=== PATIENT | female | born 1975 | race Caucasian/White ===

== ENCOUNTER 2017-08-26 16:13 | Emergency (ER) | payer OTHER ==
[2017-08-26] MEDS ORDERED: ONDANSETRON 4 MG/2 ML VIAL IVP STA (17:02)
[2017-08-26] MEDS ORDERED: HYDROmorphone 0.5 MG/0.5 ML SYRINGE IVP STA (17:02)
[2017-08-26 17:23] LABS: Basophils % (A) 1 %; CH 31.2; CHCM 32.2; Eosinophils # (A) 0.2 k/uL (0-0.7); Eosinophils % (A) 3 %; HCT 41.2 % (34.0-46.0); HGB 13.1 gm/dL (11.4-16.0); Luc % (Auto) 2; Lymphocytes # (A) 1.6 k/uL (1.0-4.8); Lymphocytes % (A) 29 %; MCH 30.8 pg (25.0-35.0); MCHC 31.7 g/dL (31.0-37.0); MCV 97.3 fL (80.0-100.0); Mean Platelet Volume 8.9; Monocytes # (A) 0.4 k/uL (0-1.0); Monocytes % (A) 7 %; Neutrophils # (A) 3.4 k/uL (1.3-7.7); Neutrophils % (A) 59 %; RBC 4.24 m/uL (3.80-5.40); RDW 13.7 % (11.5-15.5); WBC 5.7 k/uL (3.8-10.6)
[2017-08-26 17:25] LABS: Appearance,Urine Clear (Clear); Bilirubin,Urine Negative (Negative); Glucose,Urine (UA) Negative (Negative); Ketones,Urine Trace (Negative); Leukocyte Esterase,Urine Negative (Negative); Mucus,Urine Few /hpf; Nitrite,Urine Negative (Negative); PH, Urine 5.5 (5.0-8.0); Particle Count 7449; Protein,Urine Trace (Negative); RBC,Urine <1 /hpf (0-5); Specific Gravity,Urine 1.025 (1.001-1.035); Squamous Epithelial Cell,Urine 4 /hpf (0-4); UA Billing (MACRO vs. MICRO) MICRO; Urobilinogen,Urine <2.0 mg/dL (<2.0); WBC,Urine 2 /hpf (0-5)
[2017-08-26 17:36] LABS: ALT 29 U/L (9-52); AST 22 U/L (14-36); Alkaline Phosphatase 47 U/L (38-126); Amylase 66 U/L (30-110); Anion Gap 10 mmol/L; Blood Urea Nitrogen 18 mg/dL (7-17); Calcium 9.6 mg/dL (8.4-10.2); Carbon Dioxide 22 mmol/L (22-30); Chloride 108 mmol/L (98-107); Glucose 71 mg/dL (74-99); Non-African American GFR(MDRD) >60 (>60 ml/min/1.73 sqM); Potassium 4.2 mmol/L (3.5-5.1); Sodium 140 mmol/L (137-145); Total Bilirubin 0.5 mg/dL (0.2-1.3); Total Protein 7.4 g/dL (6.3-8.2)
[2017-08-26] MEDS ORDERED: CEPHALEXIN 500MG STARTER PACK 4 CAP BTL PO STA (17:37)
--- NOTE | 2017-08-26 17:44 | ED ---
General Adult HPI - General Source: patient, RN notes reviewed Mode of arrival: ambulatory Limitations: no limitations <Roland Guido - Last Filed: 08/26/17 17:42> <Des Lunsford - Last Filed: 08/26/17 20:17> - General Chief complaint: Abdominal Pain Stated complaint: Right Side Pain Time Seen by Provider: 08/26/17 16:47 - History of Present Illness Initial comments: Patient's a 42-year-old female who presents emergency room today with a chief complaint of abdominal pain. She doesn't that she's had abdominal pain on and off over the last few months per she has been following up with specialist. She does admit that over the last 12 hours she's been having increased pain in the right upper quadrant. She does describe it as a "sharp" type pain. Patient does admit that starts in the right upper side radiates around to the back. She states that she's had some problems with her gallbladder in the past. She denies anything that makes this better or worse. She does admit to feeling nauseated no vomiting at this time. Patient states she has not taken anything for pain at home. Patient also admits that she's had some pain in the right lower side of the abdomen as well but is not as severe. She admits that she's not had a menstrual cycle over a month. Denies vaginal bleeding or discharge. She denies any other complaints currently. Patient denies any recent fever, chills, shortness of breath, chest pain, numbness or tingling, dysuria or hematuria, constipation or diarrhea, headaches or visual changes, or any other complaints. (Roland Guido) - Related Data Home Medications Medication Instructions Recorded Confirmed Furosemide [Lasix] 20 mg PO DAILY 08/04/17 08/26/17 Montelukast [Singulair] 10 mg PO DAILY 08/04/17 08/26/17 Norgestimate-Ethinyl Estradiol 1 tab PO DAILY 08/04/17 08/26/17 [Mononessa 28 Tablet] QUEtiapine [SEROquel] 100 mg PO DAILY 08/04/17 08/26/17 Zolpidem [Ambien] 10 mg PO HS PRN 08/04/17 08/26/17 buPROPion HCL [Wellbutrin SR] 150 mg PO BID 08/04/17 08/26/17 clonazePAM [KlonoPIN] 0.5 mg PO BID PRN 08/04/17 08/26/17 Allergies Allergy/AdvReac Type Severity Reaction Status Date / Time ciprofloxacin [From Cipro] Allergy Nausea & Verified 08/26/17 16:23 Vomiting egg Allergy Nausea & Verified 08/26/17 16:23 Vomiting Sulfa (Sulfonamide Allergy Unknown Verified 08/26/17 16:23 Antibiotics) Review of Systems ROS Other: All systems not noted in ROS Statement are negative. <Roland Guido - Last Filed: 08/26/17 17:42> ROS Other: All systems not noted in ROS Statement are negative. <Des Lunsford - Last Filed: 08/26/17 20:17> ROS Statement: Those systems with pertinent positive or pertinent negative responses have been documented in the HPI. Past Medical History Additional Past Medical History / Comment(s): inner ear fluid imbalance, IBS, insomnia History of Any Multi-Drug Resistant Organisms: None Reported Past Surgical History: No Surgical Hx Reported Past Psychological History: Anxiety Smoking Status: Never smoker Past Alcohol Use History: Occasional Past Drug Use History: None Reported <Roland Guido - Last Filed: 08/26/17 17:42> General Exam Limitations: no limitations <Roland Guido - Last Filed: 08/26/17 17:42> <Des Lunsford - Last Filed: 08/26/17 20:17> - General Exam Comments Initial Comments: General: The patient is awake and alert, in no distress, and does not appear acutely ill. Eye: Pupils are equal, round and reactive to light, extra-ocular movements are intact. No nystagmus. There is normal conjunctiva bilaterally. No signs of icterus. Ears, nose, mouth and throat: There are moist mucous membranes and no oral lesions. Neck: The neck is supple, there is no tenderness or JVD. Cardiovascular: There is a regular rate and rhythm. No murmur, rub or gallop is appreciated. Respiratory: Lungs are clear to auscultation, respirations are non-labored, breath sounds are equal. No wheezes, stridor, rales, or rhonchi. Gastrointestinal: Normal bowel sounds. Abdomen soft on palpation. Patient does have tenderness right upper quadrant. No rebound tenderness. No guarding. Right-sided CVA tenderness. Musculoskeletal: Normal ROM, no tenderness. Strength 5/5. Sensation intact. Pulses equal bilaterally 2+. Neurological: A&O x 3. CN II-XII intact, There are no obvious motor or sensory deficits. Coordination appears grossly intact. Speech is normal. Skin: Skin is warm and dry and no rashes or lesions are noted. Psychiatric: Cooperative, appropriate mood & affect, normal judgment. (Roland Guido) Vital Signs 08/26/17 08/26/17 16:16 19:04 Temperature 98.0 F 98.2 F Pulse Rate 69 61 Respiratory 16 18 Rate Blood Pressure 136/62 120/62 O2 Sat by Pulse 100 98 Oximetry Medical Decision Making - Lab Data Result diagrams: 08/26/17 16:51 08/26/17 16:51 <Roland Guido - Last Filed: 08/26/17 17:42> - Lab Data Result diagrams: 08/26/17 16:51 08/26/17 16:51 <Des Lunsford - Last Filed: 08/26/17 20:17> - Medical Decision Making the patient had an enema of molasses. She did have some positive results. Patient states she wants to go home and try an oral medication. Though the mag citrate she used last time was affective meter 6. she has been instructed to use milk of magnesia twice daily. Increase fluids and roughage. Follow-up with family physician. (Des Lunsford) - Lab Data Lab Results 08/26/17 08/26/17 08/26/17 Range/Units 16:51 16:51 16:51 WBC 5.7 (3.8-10.6) k/uL RBC 4.24 (3.80-5.40) m/uL Hgb 13.1 (11.4-16.0) gm/dL Hct 41.2 (34.0-46.0) % MCV 97.3 (80.0-100.0) fL MCH 30.8 (25.0-35.0) pg MCHC 31.7 (31.0-37.0) g/dL RDW 13.7 (11.5-15.5) % Plt Count 245 (150-450) k/uL Neutrophils % 59 % Lymphocytes % 29 % Monocytes % 7 % Eosinophils % 3 % Basophils % 1 % Neutrophils # 3.4 (1.3-7.7) k/uL Lymphocytes # 1.6 (1.0-4.8) k/uL Monocytes # 0.4 (0-1.0) k/uL Eosinophils # 0.2 (0-0.7) k/uL Basophils # 0.0 (0-0.2) k/uL Sodium 140 (137-145) mmol/L Potassium 4.2 (3.5-5.1) mmol/L Chloride 108 H (98-107) mmol/L Carbon Dioxide 22 (22-30) mmol/L Anion Gap 10 mmol/L BUN 18 H (7-17) mg/dL Creatinine 0.83 (0.52-1.04) mg/dL Est GFR (MDRD) Af Amer >60 (>60 ml/min/1.73 sqM) Est GFR (MDRD) Non-Af >60 (>60 ml/min/1.73 sqM) Glucose 71 L (74-99) mg/dL Calcium 9.6 (8.4-10.2) mg/dL Total Bilirubin 0.5 (0.2-1.3) mg/dL AST 22 (14-36) U/L ALT 29 (9-52) U/L Alkaline Phosphatase 47 (38-126) U/L Total Protein 7.4 (6.3-8.2) g/dL Albumin 4.6 (3.5-5.0) g/dL Amylase 66 (30-110) U/L Lipase 242 (23-300) U/L Urine Color Yellow Urine Appearance Clear (Clear) Urine pH 5.5 (5.0-8.0) Ur Specific [place] 1.025 (1.001-1.035) Urine Protein Trace H (Negative) Urine Glucose (UA) Negative (Negative) Urine Ketones Trace H (Negative) Urine Blood Trace H (Negative) Urine Nitrite Negative (Negative) Urine Bilirubin Negative (Negative) Urine Urobilinogen <2.0 (<2.0) mg/dL Ur Leukocyte Esterase Negative (Negative) Urine RBC <1 (0-5) /hpf Urine WBC 2 (0-5) /hpf Ur Squamous Epith Cells 4 (0-4) /hpf Urine Mucus Few H (None) /hpf Urine HCG, Qual (Not Detectd) 08/26/17 Range/Units 16:51 WBC (3.8-10.6) k/uL RBC (3.80-5.40) m/uL Hgb (11.4-16.0) gm/dL Hct (34.0-46.0) % MCV (80.0-100.0) fL MCH (25.0-35.0) pg MCHC (31.0-37.0) g/dL RDW (11.5-15.5) % Plt Count (150-450) k/uL Neutrophils % % Lymphocytes % % Monocytes % % Eosinophils % % Basophils % % Neutrophils # (1.3-7.7) k/uL Lymphocytes # (1.0-4.8) k/uL Monocytes # (0-1.0) k/uL Eosinophils # (0-0.7) k/uL Basophils # (0-0.2) k/uL Sodium (137-145) mmol/L Potassium (3.5-5.1) mmol/L Chloride (98-107) mmol/L Carbon Dioxide (22-30) mmol/L Anion Gap mmol/L BUN (7-17) mg/dL Creatinine (0.52-1.04) mg/dL Est GFR (MDRD) Af Amer (>60 ml/min/1.73 sqM) Est GFR (MDRD) Non-Af (>60 ml/min/1.73 sqM) Glucose (74-99) mg/dL Calcium (8.4-10.2) mg/dL Total Bilirubin (0.2-1.3) mg/dL AST (14-36) U/L ALT (9-52) U/L Alkaline Phosphatase (38-126) U/L Total Protein (6.3-8.2) g/dL Albumin (3.5-5.0) g/dL Amylase (30-110) U/L Lipase (23-300) U/L Urine Color Urine Appearance (Clear) Urine pH (5.0-8.0) Ur Specific [place] (1.001-1.035) Urine Protein (Negative) Urine Glucose (UA) (Negative) Urine Ketones (Negative) Urine Blood (Negative) Urine Nitrite (Negative) Urine Bilirubin (Negative) Urine Urobilinogen (<2.0) mg/dL Ur Leukocyte Esterase (Negative) Urine RBC (0-5) /hpf Urine WBC (0-5) /hpf Ur Squamous Epith Cells (0-4) /hpf Urine Mucus (None) /hpf Urine HCG, Qual Not Detected (Not Detectd) Disposition <Roland Guido - Last Filed: 08/26/17 17:42> Time of Disposition: 20:17 <Des Lunsford - Last Filed: 08/26/17 20:17> Clinical Impression: Irritable bowel syndrome Disposition: HOME SELF-CARE Condition: Stable Instructions: Irritable Bowel Syndrome (ED) Additional Instructions: Increase fluids, eat adequate roughage. Use milk of magnesia twice daily until results. Follow-up family physician return emergency room with any changes. Referrals: Willy Pardo MD [Primary Care Provider] - 1-2 days
--- NOTE | 2017-08-26 18:25 | US ---
EXAMINATION TYPE: US abdomen limited DATE OF EXAM: 08/26/2017 COMPARISON: NONE CLINICAL HISTORY: 42-year-old female RUQ pain radiating to back with more recent onset of RLQ pain as well TECHNIQUE: Multiple sonographic images of the right upper quadrant are obtained. FINDINGS: REMOTE RECRUITER NOTES: Limited due to bowel gas and patient's ability to hold her breath. Liver Length: 14.2 cm Gallbladder Wall: 0.2 cm CBD: 0.2 cm Right Kidney: 10.2 X 4.5 X 5.2 cm Pancreas: Suboptimal visualization of the pancreatic tail secondary to shadowing from bowel gas. Vis ualized portions appear within normal limits. Liver: Multiple cysts are present, largest in the right lobe measuring 3.4 cm and largest on the lef t measuring 2.2 cm. A couple have thin internal septations. Gallbladder: wnl Evidence for sonographic Minaya's sign: No CBD: wnl Right Kidney: No hydronephrosis. IMPRESSION: A few benign hepatic cysts measuring up to 3.4 cm. Otherwise, unremarkable sonographic examination of the right upper quadrant.
--- NOTE | 2017-08-26 18:47 | XR ---
EXAMINATION TYPE: XR KUB DATE OF EXAM: 08/26/2017 CLINICAL DATA: 42-year-old female with abdominal pain, H COMPARISON: 08/04/2017 FINDINGS: Lung bases are clear. No evidence for free intraperitoneal air. No dilated small bowel or air-fluid levels. Scattered air and stool seen throughout the colon extendi ng distally into the rectum. Moderate stool burden. No suspicious calcifications identified. IMPRESSION: Moderate stool burden. No evidence of bowel obstruction or free intraperitoneal air.
[2017-08-26 19:08] VITALS: RESP 18
[2017-08-26 20:47] VITALS: BP 134/87; PULSE 87; TEMP 97.4
== END 2017-08-26 20:46 | disposition home or self-care (01) ==
LOC: EC 16:13
DX: K58.9 Irritable bowel syndrome, unspecified (principal); R11.0 Nausea; M54.9 Dorsalgia, unspecified; Z79.3 Long term (current) use of hormonal contraceptives; Z79.899 Other long term (current) drug therapy; Z88.1 Allergy status to other antibiotic agents; Z88.2 Allergy status to sulfonamides; Z91.012 Allergy to eggs
CPT/HCPCS: 36415; 80053; 82150; 83690; 85025; 81001; 81025; 74000; 76705; 99284; 96374; 96375; J2405; J1170

== ENCOUNTER 2018-03-12 19:13 | Emergency (ER) | payer OTHER ==
[2018-03-12 19:20] VITALS: BP 107/67; PULSE 64; RESP 18; TEMP 97.5
--- NOTE | 2018-03-12 19:41 | ED ---
Neck Injury/Pain HPI - General Chief Complaint: Neck Pain/Injury Stated Complaint: neck & shoulder pain Time Seen by Provider: 03/12/18 19:21 Mode of arrival: ambulatory Limitations: no limitations - History of Present Illness Initial Comments: 42-year-old female patient presents to the emergency department today for complaints of neck pain that radiates down her right arm. Patient states that she does have a history of herniated disc in her neck has had symptoms like this before. Patient states that about 5 days ago she was working out in the yard, doing power washing, and started to have pain after that. Patient states that she does have some tingling in the first 3 fingers on her right hand. She denies any injury to the neck or arm. States that she was in to see her primary care physician for this today and did receive Toradol without relief of symptoms. Patient denies any chest pain or shortness of breath. Patient states that she does feel anxious. She denies any nausea or vomiting. Patient denies any headache, back pain, dizziness, weakness, abdominal pain, nausea, vomiting, or difficulties with bowel movements or urination. - Related Data Home Medications Medication Instructions Recorded Confirmed Furosemide [Lasix] 20 mg PO DAILY 08/04/17 08/26/17 Montelukast [Singulair] 10 mg PO DAILY 08/04/17 08/26/17 Norgestimate-Ethinyl Estradiol 1 tab PO DAILY 08/04/17 08/26/17 [Mononessa 28 Tablet] QUEtiapine [SEROquel] 100 mg PO DAILY 08/04/17 08/26/17 Zolpidem [Ambien] 10 mg PO HS PRN 08/04/17 08/26/17 buPROPion HCL [Wellbutrin SR] 150 mg PO BID 08/04/17 08/26/17 clonazePAM [KlonoPIN] 0.5 mg PO BID PRN 08/04/17 08/26/17 Previous Rx's Medication Instructions Recorded Acetaminophen-Codeine 300-30mg 1 tab PO Q6H PRN #12 tablet 03/12/18 [Tylenol #3] Ibuprofen [Motrin] 600 mg PO Q8HR PRN #30 tab 03/12/18 predniSONE 50 mg PO DAILY #5 tablet 03/12/18 Allergies Allergy/AdvReac Type Severity Reaction Status Date / Time ciprofloxacin [From Cipro] Allergy Nausea & Verified 03/12/18 19:20 Vomiting egg Allergy Nausea & Verified 03/12/18 19:20 Vomiting Sulfa (Sulfonamide Allergy Unknown Verified 03/12/18 19:20 Antibiotics) Review of Systems ROS Statement: Those systems with pertinent positive or pertinent negative responses have been documented in the HPI. ROS Other: All systems not noted in ROS Statement are negative. Past Medical History Additional Past Medical History / Comment(s): inner ear fluid imbalance, IBS, insomnia History of Any Multi-Drug Resistant Organisms: None Reported Past Surgical History: No Surgical Hx Reported Past Psychological History: Anxiety Smoking Status: Never smoker Past Alcohol Use History: Occasional Past Drug Use History: None Reported General Exam Limitations: no limitations General appearance: alert, in no apparent distress, other (This is a well- developed, well-nourished adult female patient in no acute distress. Vital signs upon presentation are temperature 97.5F, pulse 64, respirations 18, blood pressure 107/67, pulse ox 100% on room air.) Eye exam: Present: normal appearance, PERRL, EOMI. Absent: scleral icterus, conjunctival injection, periorbital swelling ENT exam: Present: normal exam, normal oropharynx, mucous membranes moist Neck exam: Present: normal inspection, full ROM. Absent: tenderness, meningismus, lymphadenopathy Respiratory exam: Present: normal lung sounds bilaterally. Absent: respiratory distress, wheezes, rales, rhonchi, stridor Cardiovascular Exam: Present: regular rate, normal rhythm, normal heart sounds. Absent: systolic murmur, diastolic murmur, rubs, gallop, clicks GI/Abdominal exam: Present: soft, normal bowel sounds. Absent: distended, tenderness, guarding, rebound, rigid Extremities exam: Present: normal inspection, full ROM, normal capillary refill , other (Radial pulses are 2+ and equal bilaterally. Strength in the upper extremities is 5/5. Inspection is normal. Skin is pink, warm, and dry. Cap refills less than 3 seconds.). Absent: tenderness, pedal edema, joint swelling , calf tenderness Back exam: Present: normal inspection. Absent: vertebral tenderness Neurological exam: Present: alert, oriented X3, CN II-XII intact Psychiatric exam: Present: normal affect, normal mood, anxious Skin exam: Present: warm, dry, intact, normal color. Absent: rash Course Vital Signs 03/12/18 19:17 Temperature 97.5 F L Pulse Rate 64 Respiratory 18 Rate Blood Pressure 107/67 O2 Sat by Pulse 100 Oximetry Medical Decision Making - Medical Decision Making 42-year-old female patient presented to the emergency department today for evaluation of neck pain that radiates down the right arm. Patient has history of herniated disc and has had similar symptoms in the past. Physical examination is relatively unremarkable. Patient has full range of motion of the neck. She has full range of motion of the right arm and shoulder. Strength in the bilateral upper extremities is strong and equal. EKG was obtained and showed sinus bradycardia with no evidence of ST elevation or depression. Abdomen was soft and nontender. Patient will be treated for cervical radiculopathy. Will give IM Solu-Medrol. We'll give prescription of prednisone, Tylenol 3 to take while taking the prednisone and she will switch to ibuprofen once a steroid is complete. She is instructed to follow-up with Dr. Wilson for further evaluation of her symptoms do not improve. She is instructed to return here immediately for any new, worsening, or concerning symptoms. She verbalizes understanding and agrees this plan. - EKG Data -: EKG Interpreted by Me EKG Comments: EKG obtained at 1940 60 sinus bradycardia with a ventricular rate of 59, LA interval 146, QR moravian 84, QTC 420, QTC 4:15. No evidence of ST elevation or depression. Disposition Clinical Impression: Cervical radiculopathy Disposition: HOME SELF-CARE Condition: Good Instructions: Cervical Radiculopathy (ED) Additional Instructions: Apply warm moist heat to the neck. Take steroids in full and then start anti- inflammatory pain medication. Perform gentle range of motion exercises. Follow -up with orthopedics if her symptoms persist beyond treatment. Return here immediately for any new, worsening, or concerning symptoms. Prescriptions: Acetaminophen-Codeine 300-30mg [Tylenol #3] 1 tab PO Q6H PRN #12 tablet PRN Reason: Pain Ibuprofen [Motrin] 600 mg PO Q8HR PRN #30 tab PRN Reason: Pain predniSONE 50 mg PO DAILY #5 tablet Is patient prescribed a controlled substance at d/c from ED?: Yes When asked, does pt state using other controlled substances?: Yes If prescribed controlled substance>3 days was MAPS reviewed?: Prescribed <3 Days If opioid is for acute pain is fill amount 7 days or less?: Yes If Rx opioid, was Start Talking consent form obtained?: Yes Referrals: Isaiah Peters MD [Primary Care Provider] - 1-2 days Ashley Wilson DO [Doctor of Osteopathic Medicine] - 1-2 days Time of Disposition: 19:54
[2018-03-12] MEDS ORDERED: methylPREDNISolone SOD SUCCI 125 MG/2 ML VIAL IM ONE (19:43)
[2018-03-12] MEDS ORDERED: ACET/COD 300 MG/30 MG STARTER PACK 6 TAB BTL PO STA (19:43)
== END 2018-03-12 20:49 | disposition home or self-care (01) ==
LOC: EC 19:13
DX: M54.12 Radiculopathy, cervical region (principal); R00.1 Bradycardia, unspecified; F41.9 Anxiety disorder, unspecified; Z79.3 Long term (current) use of hormonal contraceptives; Z79.899 Other long term (current) drug therapy; Z88.2 Allergy status to sulfonamides; Z88.1 Allergy status to other antibiotic agents; Z91.012 Allergy to eggs
CPT/HCPCS: 93005; 99283; 96372; J2930

== ENCOUNTER 2018-05-30 20:51 | Emergency (ER) | payer OTHER ==
[2018-05-30] MEDS ORDERED: KETOROLAC 30 MG/ML 1 ML VIAL IVP STA (21:15)
--- NOTE | 2018-05-30 21:19 | ED ---
Abdominal Pain HPI - General Chief Complaint: Abdominal Pain Stated Complaint: Abd Pain Time Seen by Provider: 05/30/18 21:03 Source: patient Mode of arrival: ambulatory Limitations: no limitations - History of Present Illness Initial Comments: This patient is a 42-year-old woman who presents to be evaluated for right lower quadrant abdominal pain. She states that she noted the pain around 10 the morning, and felt that it was like menstrual cramps but states that she never gets those. She states that he had continued to most of the day and then around 5 PM it had become worse. She rates it as moderately severe. There is no radiation. She has not noted anything that consistently makes the pain better or worse. She has not noted any accompanying symptoms but states that she has not been eating much today. MD Complaint: abdominal pain Onset/Timin -: hour(s) Location: RLQ Radiation: none Migration to: no migration Severity: moderate Quality: cramping Consistency: constant Improves With: nothing Worsens With: nothing Associated Symptoms: anorexia - Related Data Patient : No Home Medications Medication Instructions Recorded Confirmed Furosemide [Lasix] 20 mg PO DAILY 08/04/17 08/26/17 Montelukast [Singulair] 10 mg PO DAILY 08/04/17 08/26/17 Norgestimate-Ethinyl Estradiol 1 tab PO DAILY 08/04/17 08/26/17 [Mononessa 28 Tablet] QUEtiapine [SEROquel] 100 mg PO DAILY 08/04/17 08/26/17 Zolpidem [Ambien] 10 mg PO HS PRN 08/04/17 08/26/17 buPROPion HCL [Wellbutrin SR] 150 mg PO BID 08/04/17 08/26/17 clonazePAM [KlonoPIN] 0.5 mg PO BID PRN 08/04/17 08/26/17 Previous Rx's Medication Instructions Recorded Acetaminophen-Codeine 300-30mg 1 tab PO Q6H PRN #12 tablet 03/12/18 [Tylenol #3] Ibuprofen [Motrin] 600 mg PO Q8HR PRN #30 tab 03/12/18 predniSONE 50 mg PO DAILY #5 tablet 03/12/18 Ibuprofen [Motrin] 600 mg PO Q8HR PRN #20 tab 05/31/18 Allergies Allergy/AdvReac Type Severity Reaction Status Date / Time ciprofloxacin [From Cipro] Allergy Nausea & Verified 05/30/18 20:57 Vomiting egg Allergy Nausea & Verified 05/30/18 20:57 Vomiting Sulfa (Sulfonamide Allergy Unknown Verified 05/30/18 20:57 Antibiotics) Review of Systems ROS Statement: Those systems with pertinent positive or pertinent negative responses have been documented in the HPI. ROS Other: All systems not noted in ROS Statement are negative. Constitutional: Denies: fever, chills Respiratory: Denies: cough, dyspnea Cardiovascular: Denies: chest pain, palpitations, edema Gastrointestinal: Reports: abdominal pain. Denies: vomiting, diarrhea, constipation, melena, hematochezia Genitourinary: Denies: dysuria, frequency, hematuria, abnormal menses Musculoskeletal: Denies: back pain Skin: Denies: rash Neurological: Denies: headache, weakness, numbness Psychiatric: Reports: anxiety Past Medical History Additional Past Medical History / Comment(s): inner ear fluid imbalance, IBS, insomnia History of Any Multi-Drug Resistant Organisms: None Reported Past Surgical History: No Surgical Hx Reported Past Psychological History: Anxiety Smoking Status: Never smoker Past Alcohol Use History: Occasional Past Drug Use History: None Reported General Exam Limitations: no limitations General appearance: alert, in no apparent distress Head exam: Present: atraumatic, normocephalic Eye exam: Present: normal appearance. Absent: scleral icterus, conjunctival injection ENT exam: Present: normal oropharynx Respiratory exam: Present: normal lung sounds bilaterally. Absent: respiratory distress, wheezes, rales, rhonchi, stridor Cardiovascular Exam: Present: regular rate, normal rhythm, normal heart sounds. Absent: systolic murmur, diastolic murmur, rubs, gallop GI/Abdominal exam: Present: soft, normal bowel sounds. Absent: distended, tenderness, guarding, rebound, rigid, mass, pulsatile mass, hernia External exam: Present: normal external exam. Absent: erythema, swelling, lesions, lacerations, ecchymosis Speculum exam: Present: vaginal discharge. Absent: erythema, cervical discharge , vaginal bleeding, foreign body By manual exam: Present: adnexal tenderness. Absent: cervical motion tenderness , uterine enlargement, uterine tenderness Extremities exam: Present: normal inspection, normal capillary refill. Absent: pedal edema, calf tenderness Back exam: Present: normal inspection. Absent: CVA tenderness (R), CVA tenderness (L), vertebral tenderness Neurological exam: Present: alert Skin exam: Present: warm, dry, intact, normal color. Absent: rash Course Vital Signs 05/30/18 05/31/18 20:55 00:11 Temperature 98.0 F Pulse Rate 66 65 Respiratory 20 17 Rate Blood Pressure 125/81 134/82 O2 Sat by Pulse 99 99 Oximetry Medical Decision Making - Lab Data Result diagrams: 05/30/18 21:20 05/30/18 21:20 Lab Results 05/30/18 05/30/18 05/30/18 Range/Units 21:20 21:20 21:30 WBC 5.6 (3.8-10.6) k/uL RBC 3.96 (3.80-5.40) m/uL Hgb 12.2 (11.4-16.0) gm/dL Hct 37.1 (34.0-46.0) % MCV 93.8 (80.0-100.0) fL MCH 30.8 (25.0-35.0) pg MCHC 32.9 (31.0-37.0) g/dL RDW 13.7 (11.5-15.5) % Plt Count 224 (150-450) k/uL Neutrophils % 54 % Lymphocytes % 33 % Monocytes % 7 % Eosinophils % 2 % Basophils % 0 % Neutrophils # 3.0 (1.3-7.7) k/uL Lymphocytes # 1.9 (1.0-4.8) k/uL Monocytes # 0.4 (0-1.0) k/uL Eosinophils # 0.1 (0-0.7) k/uL Basophils # 0.0 (0-0.2) k/uL Sodium 139 (137-145) mmol/L Potassium 3.9 (3.5-5.1) mmol/L Chloride 107 (98-107) mmol/L Carbon Dioxide 24 (22-30) mmol/L Anion Gap 8 mmol/L BUN 14 (7-17) mg/dL Creatinine 0.70 (0.52-1.04) mg/dL Est GFR (CKD-EPI)AfAm >90 (>60 ml/min/1.73 sqM) Est GFR (CKD-EPI)NonAf >90 (>60 ml/min/1.73 sqM) Glucose 106 H (74-99) mg/dL Calcium 9.3 (8.4-10.2) mg/dL Total Bilirubin 0.4 (0.2-1.3) mg/dL AST 24 (14-36) U/L ALT 33 (9-52) U/L Alkaline Phosphatase 48 (38-126) U/L C-Reactive Protein 10.7 H (<10.0) mg/L Total Protein 6.3 (6.3-8.2) g/dL Albumin 3.7 (3.5-5.0) g/dL Amylase 54 (30-110) U/L Lipase 172 (23-300) U/L Urine Color Urine Appearance (Clear) Urine pH (5.0-8.0) Ur Specific Cody (1.001-1.035) Urine Protein (Negative) Urine Glucose (UA) (Negative) Urine Ketones (Negative) Urine Blood (Negative) Urine Nitrite (Negative) Urine Bilirubin (Negative) Urine Urobilinogen (<2.0) mg/dL Ur Leukocyte Esterase (Negative) Urine RBC (0-5) /hpf Ur Squamous Epith Cells (0-4) /hpf Amorphous Sediment (None) /hpf Urine Mucus (None) /hpf Urine HCG, Qual Not Detected (Not Detectd) 05/30/18 Range/Units 21:30 WBC (3.8-10.6) k/uL RBC (3.80-5.40) m/uL Hgb (11.4-16.0) gm/dL Hct (34.0-46.0) % MCV (80.0-100.0) fL MCH (25.0-35.0) pg MCHC (31.0-37.0) g/dL RDW (11.5-15.5) % Plt Count (150-450) k/uL Neutrophils % % Lymphocytes % % Monocytes % % Eosinophils % % Basophils % % Neutrophils # (1.3-7.7) k/uL Lymphocytes # (1.0-4.8) k/uL Monocytes # (0-1.0) k/uL Eosinophils # (0-0.7) k/uL Basophils # (0-0.2) k/uL Sodium (137-145) mmol/L Potassium (3.5-5.1) mmol/L Chloride (98-107) mmol/L Carbon Dioxide (22-30) mmol/L Anion Gap mmol/L BUN (7-17) mg/dL Creatinine (0.52-1.04) mg/dL Est GFR (CKD-EPI)AfAm (>60 ml/min/1.73 sqM) Est GFR (CKD-EPI)NonAf (>60 ml/min/1.73 sqM) Glucose (74-99) mg/dL Calcium (8.4-10.2) mg/dL Total Bilirubin (0.2-1.3) mg/dL AST (14-36) U/L ALT (9-52) U/L Alkaline Phosphatase (38-126) U/L C-Reactive Protein (<10.0) mg/L Total Protein (6.3-8.2) g/dL Albumin (3.5-5.0) g/dL Amylase (30-110) U/L Lipase (23-300) U/L Urine Color Yellow Urine Appearance Cloudy H (Clear) Urine pH 6.5 (5.0-8.0) Ur Specific Cody 1.015 (1.001-1.035) Urine Protein Negative (Negative) Urine Glucose (UA) Negative (Negative) Urine Ketones Negative (Negative) Urine Blood Small H (Negative) Urine Nitrite Negative (Negative) Urine Bilirubin Negative (Negative) Urine Urobilinogen 3.0 (<2.0) mg/dL Ur Leukocyte Esterase Negative (Negative) Urine RBC 4 (0-5) /hpf Ur Squamous Epith Cells 1 (0-4) /hpf Amorphous Sediment Occasional H (None) /hpf Urine Mucus Occasional H (None) /hpf Urine HCG, Qual (Not Detectd) Disposition Clinical Impression: Abdominal pain, Ovarian cyst Disposition: HOME SELF-CARE Condition: Good Instructions: Ovarian Cyst (ED), Abdominal Pain (ED) Prescriptions: Ibuprofen [Motrin] 600 mg PO Q8HR PRN #20 tab PRN Reason: Pain Is patient prescribed a controlled substance at d/c from ED?: No Referrals: Nonstaff,Physician [REFERRING] - 1-2 days Valarie Luque DO [Doctor of Osteopathic Medicine] - 1-2 days
[2018-05-30 21:34] LABS: Basophils % (A) 0 %; Eosinophils # (A) 0.1 k/uL (0-0.7); Eosinophils % (A) 2 %; HCT 37.1 % (34.0-46.0); HGB 12.2 gm/dL (11.4-16.0); Lymphocytes # (A) 1.9 k/uL (1.0-4.8); Lymphocytes % (A) 33 %; MCH 30.8 pg (25.0-35.0); MCHC 32.9 g/dL (31.0-37.0); MCV 93.8 fL (80.0-100.0); Mean Platelet Volume 8.5; Monocytes # (A) 0.4 k/uL (0-1.0); Monocytes % (A) 7 %; Neutrophils % (A) 54 %; Platelet Count 224 k/uL (150-450); RBC 3.96 m/uL (3.80-5.40); RDW 13.7 % (11.5-15.5); WBC 5.6 k/uL (3.8-10.6)
[2018-05-30 21:46] LABS: Amorphous Sediment,Urine Occasional /hpf; Appearance,Urine Cloudy (Clear); Bilirubin,Urine Negative (Negative); Blood,Urine Small (Negative); Color,Urine Yellow; Glucose,Urine (UA) Negative (Negative); Ketones,Urine Negative (Negative); Leukocyte Esterase,Urine Negative (Negative); Mucus,Urine Occasional /hpf; Nitrite,Urine Negative (Negative); PH, Urine 6.5 (5.0-8.0); Protein,Urine Negative (Negative); RBC,Urine 4 /hpf (0-5); Specific Gravity,Urine 1.015 (1.001-1.035); Squamous Epithelial Cell,Urine 1 /hpf (0-4)
[2018-05-30 21:54] LABS: ALT 33 U/L (9-52); AST 24 U/L (14-36); Albumin 3.7 g/dL (3.5-5.0); Alkaline Phosphatase 48 U/L (38-126); Amylase 54 U/L (30-110); Anion Gap 8 mmol/L; Blood Urea Nitrogen 14 mg/dL (7-17); C Reactive Protein 10.7 mg/L (<10.0); Calcium 9.3 mg/dL (8.4-10.2); Carbon Dioxide 24 mmol/L (22-30); Chloride 107 mmol/L (98-107); Glucose 106 mg/dL (74-99); Lipase 172 U/L (23-300); Potassium 3.9 mmol/L (3.5-5.1); Sodium 139 mmol/L (137-145); Total Bilirubin 0.4 mg/dL (0.2-1.3); Total Protein 6.3 g/dL (6.3-8.2)
--- NOTE | 2018-05-30 21:56 | XR ---
EXAMINATION TYPE: XR KUB DATE OF EXAM: 05/30/2018 COMPARISON: 08/26/2017 HISTORY: Right lower quadrant pain TECHNIQUE: 2 views upright FINDINGS: There is no sign of intestinal obstruction or pneumoperitoneum. Fecal pattern is normal. Munira ng bases are clear. There are no pathologic calcifications over the kidneys. IMPRESSION: Nonacute abdomen. No change.
--- NOTE | 2018-05-31 00:10 | US ---
EXAMINATION TYPE: US transvaginal DATE OF EXAM: 05/30/2018 COMPARISON: NONE CLINICAL HISTORY: Pain, attention R adnexa. RLQ pain TECHNIQUE: Transvaginal (TV). EXAM MEASUREMENTS: Uterus: 7.0 x 3.3 x 3.3 cm Endometrial Stripe: 0.5 cm Right Ovary: 1.9 x 1.3 x 1.5 cm 1. Uterus: Anteverted heterogenous 2. Endometrium: Not well defined. 3. Right Ovary: Cystic area seen measuring 1.1 x .8 x .9cm. 4. Left Ovary: Obscured by overlying bowel gas Spectral, color and waveform doppler imaging shows good arterial and venous flow within the right o vary; there is no evidence for ovarian torsion. 5. Bilateral Adnexa: wnl 6. Posterior cul-de-sac: wnl IMPRESSION: Normal uterus and endometrium. Small right ovarian cyst. No evidence of right ovarian tor wali. Left ovary is not seen.
[2018-05-31 00:30] VITALS: BP 131/62; PULSE 69; RESP 18; TEMP 98.9
[2018-06-02 08:26] LABS: C. trachomatis,PCR Negative (Neg,Equiv); Chlamydia trachomatis Source Vagina; N. gonorrhoeae,PCR Negative (Neg,Equiv); Neisseria Source Vagina
== END 2018-05-31 00:29 | disposition home or self-care (01) ==
LOC: EC 20:51
DX: N83.201 Unspecified ovarian cyst, right side (principal); K58.9 Irritable bowel syndrome, unspecified; F41.9 Anxiety disorder, unspecified; Z79.3 Long term (current) use of hormonal contraceptives; Z79.899 Other long term (current) drug therapy; Z88.1 Allergy status to other antibiotic agents; Z91.012 Allergy to eggs; Z88.2 Allergy status to sulfonamides
CPT/HCPCS: 99284; 96374; 36415; 80053; 82150; 83690; 85025; 86140; 81001; 81025; 87491; 87591; 74018; 93976; 76830; J1885

== ENCOUNTER → 2018-06-25 | Outpatient (CLI) | payer OTHER ==
--- NOTE | 2018-06-25 09:10 | US ---
EXAMINATION TYPE: US abdomen complete DATE OF EXAM: 06/25/2018 COMPARISON: Limited abdominal ultrasound August 26, 2017 CLINICAL HISTORY: R10.84 Abdominal pain. EXAM MEASUREMENTS: Liver Length: 13.4 cm Gallbladder Wall: 0.2 cm CBD: 0.1 cm Spleen: 8.1 cm Right Kidney: 10.4 x 4.6 x 5.1 cm Left Kidney: 10.0 x 5.2 x 5.3 cm Pancreas: Tail partially obscured by overlying bowel gas Liver: multiple liver cysts, largest measuring 3.6 x 3.0 x 3.7cm Gallbladder: wnl Evidence for sonographic Minaya's sign: No CBD: wnl Spleen: limited visualization due to overlying bowel gas Right Kidney: No hydronephrosis or masses seen Left Kidney: No hydronephrosis or masses seen Upper IVC: wnl Abd Aorta: bifurcation obscured by overlying bowel gas The visualized liver liver is homogenous with scattered thin-walled cysts redemonstrated. The intrah epatic portion of the IVC and visualized abdominal aorta are within normal limits. There is no evide nce of cholelithiasis. Common bile duct is unremarkable. The visualized portions of the pancreas ar e homogenous. The spleen is unremarkable. Kidneys are symmetric and free of hydronephrosis. No edgar al lesions are seen. IMPRESSION: Thin-walled simple appearing cysts throughout liver are redemonstrated. No suspicious new or acute finding is seen to account for patient's symptoms.
== END | disposition home or self-care (01) ==
LOC: RADUSWWP 07:57
PROVIDERS: ATTEND Family Medicine
DX: K76.89 Other specified diseases of liver (principal)
CPT/HCPCS: 76700

== ENCOUNTER → 2019-01-30 | Outpatient (CLI) | payer OTHER ==
--- NOTE | 2019-01-30 15:46 | MR ---
EXAMINATION TYPE: MR lumbar spine wo/w con DATE OF EXAM: 01/30/2019 COMPARISON: NONE HISTORY: Back pain with sciatica per order. Severe adenopathy back pain into left lower extremity per patient. TECHNIQUE: Multiplanar, multisequence images of the lumbar spine is performed without and with IV contrast, util izing 6 mL intravenous Gadavist FINDINGS: Sagittal images of the lumbar spine show vertebral body heights to appear satisfactory. The re is grade 1 retrolisthesis of L4 on L5 measured 4 mm posterior margin sagittal image 8. There is di sc desiccation L3-L4 and L4-L5 level. There is moderate to advanced disc space narrowing with vacuum disc phenomenon L4-L5 level with heterogeneous Modic type II endplate changes. The conus medullaris is high in position ending T11-T12 disc space given above counting sequence. No suspicious enhancemen t is noted. Axial images begin at labeled T11-T12 level which appears within normal limits on axial image 32. Axial images at T12-L1, L1-L2, L2-L3, and L3-L4 levels are felt within normal limits. Axial images at the L4-L5 levels with spondylolisthesis with mild/moderate broad disc bulge mildly ef facing anterior thecal sac and axial image 7 and causing mild bilateral anterior inferior neural fora ignacia narrowing. Axial images at the L5-S1 level some mild facet degenerative changes bilaterally. Spinal canal is pre served. Bilateral neural foramina are patent. No suspicious retroperitoneal findings are seen. IMPRESSION: Spondylolisthesis and degenerative change at labeled L4-L5 level.
== END | disposition home or self-care (01) ==
LOC: RADMRIMAIN 12:52
PROVIDERS: ATTEND Family Medicine
DX: M43.16 Spondylolisthesis, lumbar region (principal); M47.26 Other spondylosis with radiculopathy, lumbar region
CPT/HCPCS: 82565; 72158; 36415; A9585

== ENCOUNTER 2019-08-21 16:37 | Emergency (ER) | payer OTHER ==
[2019-08-21] MEDS ORDERED: HYDROcodone/APAP 7.5-325MG 1 EACH TAB PO ONE (17:06)
--- NOTE | 2019-08-21 17:22 | XR ---
EXAMINATION TYPE: XR cervical spine comp DATE OF EXAM: 08/21/2019 COMPARISON: None HISTORY: 44-year-old female with pain TECHNIQUE: 5 views FINDINGS: No predental space widening or prevertebral soft tissue swelling. Mild to moderate degenerative joint space narrowing with endplate spondylosis C5-C6. Hypertrophic facet arthropathy lower cervical spine with trace grade 1 anterolisthesis at the C7-T1. Uncovertebral joint arthropathy also seen in the mi d to lower cervical spine. On the right, changes result in moderate bony neuroforaminal narrowing at C5-C6. Normal odontoid view . IMPRESSION: Moderate spondylitic change mid to lower cervical spine. Degenerative grade 1 anterolisthesis at C7-T 1. Moderate bony neuroforaminal narrowing on the right at C5-C6.
[2019-08-21] MEDS ORDERED: HYDROmorphone 1 MG/ML 1 ML SYRINGE IM STA (18:11)
--- NOTE | 2019-08-21 18:12 | ED ---
Neck Injury/Pain HPI - General Chief Complaint: Neck Pain/Injury Stated Complaint: neck pain, bilat hand numbness Time Seen by Provider: 08/21/19 16:53 Source: patient, RN notes reviewed Mode of arrival: ambulatory Limitations: no limitations - History of Present Illness Initial Comments: 44-year-old female presents emergency from chief complaint neck, arm pain. Patient's had chronic issues in which she has a herniated disc or not she receives injections by Dr. Hawkins. 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 Patient states that she's had increasing numbness her right arm. She does have known carpal tunnel wears a brace at nighttime. Patient den ies any headache, dizziness, focal weakness. Denies chest pain or shortness breath. - Related Data Home Medications Medication Instructions Recorded Confirmed Furosemide [Lasix] 20 mg PO DAILY 08/04/17 08/26/17 Montelukast [Singulair] 10 mg PO DAILY 08/04/17 08/26/17 Norgestimate-Ethinyl Estradiol 1 tab PO DAILY 08/04/17 08/26/17 [Mononessa 28 Tablet] QUEtiapine [SEROquel] 100 mg PO DAILY 08/04/17 08/26/17 Zolpidem [Ambien] 10 mg PO HS PRN 08/04/17 08/26/17 buPROPion HCL [Wellbutrin SR] 150 mg PO BID 08/04/17 08/26/17 clonazePAM [KlonoPIN] 0.5 mg PO BID PRN 08/04/17 08/26/17 Previous Rx's Medication Instructions Recorded Acetaminophen-Codeine 300-30mg 1 tab PO Q6H PRN #12 tablet 03/12/18 [Tylenol #3] Ibuprofen [Motrin] 600 mg PO Q8HR PRN #30 tab 03/12/18 predniSONE 50 mg PO DAILY #5 tablet 03/12/18 Ibuprofen [Motrin] 600 mg PO Q8HR PRN #20 tab 05/31/18 predniSONE 50 mg PO DAILY #5 tab 08/21/19 Allergies Allergy/AdvReac Type Severity Reaction Status Date / Time ciprofloxacin [From Cipro] Allergy Nausea & Verified 08/21/19 16:43 Vomiting egg Allergy Nausea & Verified 08/21/19 16:43 Vomiting Sulfa (Sulfonamide Allergy Unknown Verified 08/21/19 16:43 Antibiotics) Review of Systems ROS Statement: Those systems with pertinent positive or pertinent negative responses have been documented in the HPI. ROS Other: All systems not noted in ROS Statement are negative. Past Medical History Past Medical History: Cancer Additional Past Medical History / Comment(s): inner ear fluid imbalance, IBS, insomnia, kidney History of Any Multi-Drug Resistant Organisms: None Reported Past Surgical History: No Surgical Hx Reported Additional Past Surgical History / Comment(s): kideny mass removed november 2018 Past Psychological History: Anxiety Smoking Status: Never smoker Past Alcohol Use History: Occasional Past Drug Use History: None Reported General Exam Limitations: no limitations General appearance: alert, in no apparent distress Head exam: Present: atraumatic, normocephalic, normal inspection Neck exam: Present: normal inspection, tenderness (Mild right paracervical spinal), full ROM. Absent: meningismus, lymphadenopathy Respiratory exam: Present: normal lung sounds bilaterally. Absent: respiratory distress, wheezes, rales, rhonchi, stridor Cardiovascular Exam: Present: regular rate, normal rhythm, normal heart sounds. Absent: systolic murmur, diastolic murmur, rubs, gallop, clicks Extremities exam: Present: other (Upper extremity strength equal bilaterally neurovascular intact) Neurological exam: Present: alert, oriented X3, CN II-XII intact, reflexes normal. Absent: motor sensory deficit Skin exam: Present: warm, dry, intact, normal color. Absent: rash Course Vital Signs 08/21/19 16:40 Temperature 98.1 F Pulse Rate 65 Respiratory 16 Rate Blood Pressure 125/66 O2 Sat by Pulse 99 Oximetry Medical Decision Making - Medical Decision Making X-ray of the cervical spine shows moderate spondylitic changes the mid to lower cervical spine degenerative grade 1 anterolisthesis C7-T1 moderate bony no foraminal narrowing on the right C5-C6. Patient was started on oral prednisone, pain medication patient advised follow-up with her neurologist. Disposition Clinical Impression: Cervical radiculopathy Disposition: HOME SELF-CARE Condition: Stable Instructions (If sedation given, give patient instructions): Cervical Radiculopathy (ED) Additional Instructions: Please return to the Emergency Department if symptoms worsen or any other concerns. Prescriptions: predniSONE 50 mg PO DAILY #5 tab Is patient prescribed a controlled substance at d/c from ED?: No Referrals: Willy Pardo MD [Primary Care Provider] - 1-2 days Time of Disposition: 18:06
[2019-08-21 18:33] VITALS: BP 143/86; PULSE 97; RESP 18; TEMP 98.2
== END 2019-08-21 18:52 | disposition home or self-care (01) ==
LOC: EC 16:37
DX: M47.22 Other spondylosis with radiculopathy, cervical region (principal); M43.13 Spondylolisthesis, cervicothoracic region; F41.9 Anxiety disorder, unspecified; Z88.1 Allergy status to other antibiotic agents; Z88.2 Allergy status to sulfonamides; Z91.012 Allergy to eggs; Z79.3 Long term (current) use of hormonal contraceptives; Z79.899 Other long term (current) drug therapy; Z85.528 Personal history of other malignant neoplasm of kidney; Z98.890 Other specified postprocedural states
CPT/HCPCS: 72050; 99283; 96372; J1170

== ENCOUNTER → 2020-03-04 | Outpatient (CLI) | payer OTHER ==
[2020-03-04 14:48] LABS: Basophils % (A) 1 %; Eosinophils # (A) 0.1 k/uL (0-0.7); Eosinophils % (A) 2 %; HCT 40.6 % (34.0-46.0); HGB 12.8 gm/dL (11.4-16.0); Lymphocytes # (A) 1.9 k/uL (1.0-4.8); Lymphocytes % (A) 34 %; MCH 29.7 pg (25.0-35.0); MCHC 31.4 g/dL (31.0-37.0); MCV 94.6 fL (80.0-100.0); Mean Platelet Volume 9.7; Monocytes # (A) 0.3 k/uL (0-1.0); Monocytes % (A) 6 %; Neutrophils # (A) 3.1 k/uL (1.3-7.7); Neutrophils % (A) 54 %; Platelet Count 223 k/uL (150-450); RBC 4.29 m/uL (3.80-5.40); RDW 13.6 % (11.5-15.5); WBC 5.7 k/uL (3.8-10.6)
[2020-03-05 00:08] LABS: Thyroid Peroxidase Antibodies <28.0 U/mL (0.0-60.0)
[2020-03-05 00:30] LABS: Codfish IgE <0.10 kU/L; Egg White IgE <0.10 kU/L
[2020-03-05 02:28] LABS: Scallop IgE <0.10 kU/L
[2020-03-05 02:29] LABS: Clam IgE <0.10 kU/L; Shrimp IgE <0.10 kU/L; Soybean IgE <0.10 kU/L; Walnut IgE (Food) <0.10 kU/L
[2020-03-05 02:30] LABS: Peanut IgE <0.10 kU/L
== END | disposition home or self-care (01) ==
LOC: LABWHC1 13:54
PROVIDERS: ATTEND Family Medicine
DX: R53.83 Other fatigue (principal); H81.10 Benign paroxysmal vertigo, unspecified ear; D64.9 Anemia, unspecified; R10.9 Unspecified abdominal pain; R60.9 Edema, unspecified; R63.5 Abnormal weight gain
CPT/HCPCS: 36415; 82785; 84443; 85025; 86003; 86376; 86800